=== PATIENT | male | born 1975 | race Caucasian/White ===

== ENCOUNTER 2018-10-21 15:33 | Emergency (ER) | payer OTHER ==
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
[2018-10-21] MEDS ORDERED: Iodixanol* (CONTRAST) 320 MG/ML 100 ML SDV IV ONE (16:54)
[2018-10-21] MEDS ORDERED: Ibuprofen TAB* 600 MG PO ONE (19:05)
--- NOTE | 2018-10-21 19:10 | PN ---
Progress Note - Progress Note Date of Service: 10/21/18 Note: Patient signed out to me by Marita ANAYA pending results of CAT scans of C- spine, T-spine, L-spine and chest abdomen or pelvis. SCANS negative except for nondisplaced fracture of manubrium. Patient provided with incentive spirometry. Vital signs otherwise normal limits. Patient has no active pain. Discharged home in stable condition with recommendation that he avoid strenuous physical activity for 2 months. Follow-up with orthopedics Dr. Smith for further evaluation.
[2018-10-21 19:33] VITALS: BP 112/73
== END 2018-10-21 19:31 | disposition home or self-care (01) ==
LOC: ED 15:33
DX: S22.21XA Fracture of manubrium, initial encounter for closed fracture (principal); S51.812A Laceration without foreign body of left forearm, initial encounter; W11.XXXA Fall on and from ladder, initial encounter; Y92.9 Unspecified place or not applicable
CPT/HCPCS: 12002; 71260; 72125; 72128; 72131; 74177; 93005; 99283; Q9967